=== PATIENT | male | born 1940 | race Caucasian/White ===

== ENCOUNTER → 2017-12-25 | Outpatient (CLI) | payer MEDICARE, OTHER ==
[~2017-12-25] MED LIST: ASP325T PO; ATOR40TA PO; CALC625T PO; CITA40TA19 PO; CLCX200C PO; CLOP75TA PO; CPR500T PO; CYCL10TA9 PO; Celebrex; Celexa; DPH25C PO; E400C PO; FEXO-104 PO; GLUC1000 PO; GLUC1TAB60 PO; HYDR-34 PO; INUL2TAB2 PO; IOHEXOL 350 MG/ML 100 ML (OMNIPAQUE 350) VIAL IV ONE; LOSA1TAB15 PO; LOSA1TAB9; METO-333 PO; METR500T PO; MULT-608 PO; NF-FLON16G; NS 250 ML (IVPB) BAG IV ONE; OMEG1CAP51 PO; PNT40TEC PO; POTA10CA43 PO; Protonix; TRAZ150T42; TRZ50T PO; VITA100T PO; ZINC50TA49 PO
--- NOTE | 2017-12-25 10:26 | Diagnostic Imaging Report ---
PROCEDURE: CT abdomen and pelvis with and without contrast. TECHNIQUE: Precontrast acquisitions were acquired through the abdomen and pelvis. Multiple contiguous axial images were obtained through the abdomen and pelvis after the administration of intravenous contrast. INDICATION: Lower abdominal pain. COMPARISON: Comparison is made with prior CT from 09/01/2013. FINDINGS: The lung bases are clear. No discrete liver mass is identified. The gallbladder is unremarkable. The pancreas and spleen are unremarkable. No adrenal mass is identified. Multiple low-density masses are identified within both kidneys consistent with renal cysts. This is similar to prior exam. There is a large nonobstructing calculus in lower pole left kidney, 12 mm in size, similar to prior exam. Aorta is heavily calcified but nonaneurysmal. The small and large bowel loops are of normal caliber. There is sigmoid diverticulosis but no evidence of acute diverticulitis is seen. There is no ascites. Bladder is unremarkable. Postsurgical changes in the pelvis from prostatectomy are noted. There is a fat-containing left inguinal hernia. IMPRESSION: 1. Uncomplicated diverticulosis. 2. Bilateral renal cysts. 3. Status post prostatectomy. 4. No acute feature is identified. Dictated by: Dictated on workstation # [id number]
== END ==
LOC: RAD 07:48
PROVIDERS: ATTEND Nurse Practitioner Family
DX: N28.1 Cyst of kidney, acquired (principal); Z90.79 Acquired absence of other genital organ(s)
CPT/HCPCS: 74178

== ENCOUNTER 2019-01-01 05:31 | Outpatient (CLI) | payer MEDICARE, OTHER ==
[~2019-01-01] VITALS: Ht 172.7 cm; Wt 80.7 kg
[~2019-01-01 05:31] MED LIST changes: -IOHEXOL 350 MG/ML 100 ML (OMNIPAQUE 350) VIAL IV ONE; -NS 250 ML (IVPB) BAG IV ONE
[2019-01-01] MEDS ORDERED: VIT1CAPS44 PO (11:24)
[2019-01-01] MEDS ORDERED: METO-333 PO (11:24)
[2019-01-01] MEDS ORDERED: ASPI-999 PO (11:24)
[2019-01-01] MEDS ORDERED: OMEG-109 PO (11:24)
[2019-01-01] MEDS ORDERED: LOSA100T57 PO (11:24)
[2019-01-01] MEDS ORDERED: GABA-488 PO (11:24)
[2019-01-01] MEDS ORDERED: CETI10TA17 PO (11:24)
[2019-01-01] MEDS ORDERED: CELE-63 PO (11:24)
[2019-01-01] MEDS ORDERED: [UNRECOGNIZED DRUG - CODE] PO (11:24)
[2019-01-01] MEDS ORDERED: VITA100T4 PO (11:24)
[2019-01-01] MEDS ORDERED: MAGN500C15 PO (11:24)
[2019-01-01] MEDS ORDERED: [UNRECOGNIZED DRUG - CODE] PO (11:24)
[2019-01-01] MEDS ORDERED: GLUC-153 PO (11:24)
[2019-01-01] MEDS ORDERED: ZINC50TA51 PO (11:24)
[2019-01-01] MEDS ORDERED: MULT-1056 PO (11:24)
[2019-01-01] MEDS ORDERED: POTA10TA10 PO (11:24)
[2019-01-01] MEDS ORDERED: VITA100T6 PO (11:24)
[2019-01-01] MEDS ORDERED: CITA40TA11 PO (11:24)
[2019-01-01] MEDS ORDERED: TRAZ-189 PO (11:24)
== END 2019-01-01 11:26 | disposition home or self-care (01) ==
LOC: PREOP 05:31
PROVIDERS: ATTEND Surgery
DX: Z01.818 Encounter for other preprocedural examination (principal)

== ENCOUNTER → 2019-10-07 | Outpatient (CLI) | payer MEDICARE, OTHER ==
--- NOTE | 2019-09-16 10:38 | Implantation of Loop Monitor ---
Implant of Loop Monitior IMPLANTATION OF LOOP MONITOR REPORT DATE OF PROCEDURE: 09/16/19 PREOP DIAGNOSIS: paroxysmal atrial fibrillation POSTOP DIAGNOSIS: paroxysmal atrial fibrillation PROCEDURE DETAILS: The patient is a 79 male with history of paroxysmal atrial fibrillation requiring long-term surveillance. Therefore implantable loop recorder was discussed and agreed with the patient. Informed consent was taken. All risks and complications were discussed at length. The patient was draped and prepped in the usual sterile fashion. Local anesthesia was lidocaine, which was given in the substernal area close to the 4th intercostal space. Loop monitor Med[employer]onic [id number] was implanted according to the protocol. Steri-Strips were placed at the end of the procedure. There were no complications and the patient tolerated the procedure well. The device was interrogated with a voltage of. ANESTHESIA: Local anesthesia with lidocaine. COMPLICATIONS: None CONTRAST/FLUOROSCOPY: None CONCLUSION: Successful implantation of loop recorder would no complication FINAL DIAGNOSIS: Paroxysmal atrial fibrillation Palpitation Hypertension Hyperlipidemia JOEL REA MD Sep 16, 2019 10:38
[~2019-10-07] VITALS: Ht 173 cm; Wt 82.0 kg
[~2019-10-07] MED LIST changes: +ASPI-999 PO; +CATHETER FLUSH 10 ML SYR IV PRN; +CELE-63 PO; +CETI10TA17 PO; +CITA40TA11 PO; +GABA-488 PO; +GLUC-153 PO; +LOSA100T57 PO; +MAGN500C15 PO; +MULT-1056 PO; +OMEG-109 PO; +POTA10TA10 PO; +VIT1CAPS44 PO; +VITA100T4 PO; +VITA100T6 PO; +ZINC50TA51 PO; +[UNRECOGNIZED DRUG - CODE] PO; +[UNRECOGNIZED DRUG - CODE] PO
[2019-10-07 09:07] VITALS: BP 140/79
--- NOTE | 2019-10-07 19:34 | STRESS TEST ---
DATE OF SERVICE: 10/07/2019 EXERCISE MYOVIEW STRESS TEST REPORT REFERRING PHYSICIAN: Eliana Stevens MD Baseline heart rate is 57, baseline blood pressure 139/87. Baseline EKG is sinus rhythm with no ischemic changes. In summary, the patient was injected with 10.31 mCi of technetium-99 Myoview and the resting images were obtained. Then, the patient started exercising with a baseline heart rate, blood pressure and EKG mentioned above. The patient was able to exercise for 8 minutes on standard Simón protocol. With peak exercise level, EKG was showing minimal nondiagnostic changes. Blood pressure at peak was 196/79. During recovery, heart rate and blood pressure returned to baseline. EKG returned to baseline. The resting and stress images were reviewed and compared in the short axis, horizontal long axis, and vertical long axis views. Review of the images showed diaphragmatic attenuation with no significant ischemia or infarction. SSS is 3, SDS 3, TID value 0.98. On the gated images, the left ventricle appeared to be normal size with normal contractility. Calculated ejection fraction 70%. CONCLUSION: 1. Good exercise tolerance, a total of 8 minutes on standard Simón protocol, total of 9.5 METS achieving 86% of maximum expected heart rate. 2. Appropriate heart rate and blood pressure response to exercise returned to baseline during recovery. 3. Nondiagnostic EKG changes with exercise returned to baseline during recovery. 4. Diaphragmatic attenuation with mild decreased uptake at the inferior wall, no significant ischemia was noted. 5. Normal left ventricular size with normal contractility. Calculated ejection fraction 70%. Job ID: [id number] DocumentID: [id number] Dictated Date: 10/07/2019 15:11:51 Desktop Publishing Operator Date: 10/07/2019 19:33:38 Dictated By: JOEL REA MD
== END ==
LOC: CARD 09-16 08:03
PROVIDERS: ATTEND Internal Medicine Cardiovascular Disease
DX: I10 Essential (primary) hypertension (principal); I25.10 Atherosclerotic heart disease of native coronary artery without angina pectoris; I65.23 Occlusion and stenosis of bilateral carotid arteries; I48.0 Paroxysmal atrial fibrillation; R00.2 Palpitations; E78.5 Hyperlipidemia, unspecified
CPT/HCPCS: 78452; 93017; 93306

== ENCOUNTER → 2019-11-27 | Outpatient (CLI) | payer MEDICARE, OTHER ==
[~2019-11-27] MED LIST changes: -CATHETER FLUSH 10 ML SYR IV PRN
--- NOTE | 2019-11-27 09:54 | Diagnostic Imaging Report ---
EXAMINATION: Magnetic resonance imaging of the left shoulder without contrast. DATE: November 27, 2019. COMPARISON: None. HISTORY: 79-year-old male, left shoulder pain. TECHNIQUE: Magnetic Resonance Imaging sequences were performed of the shoulder without contrast. FINDINGS: ROTATOR CUFF, LIGAMENTS, TENDONS, AND MUSCLES: There is a 10 mm wide full-thickness tear involving the anterior leading edge of the supraspinatus tendon. That tear measures 5 mm in medial to lateral dimension. The infraspinatus and teres minor tendons are intact. There is subscapularis tendinopathy. There is normal rotator cuff muscle bulk and signal. LONG HEAD OF BICEPS: The biceps labral attachment and long head of the biceps tendon is intact. The long head of the biceps tendon is normally positioned within the bicipital groove. GLENOHUMERAL JOINT: The humeral head is well positioned relative to the glenoid. There is a superior labral tear with extension posteriorly to involve the posterior superior labrum with associated multiloculated paralabral cyst which measures 10 x 8 x 10 mm in size. There is additional tearing of the posterior labrum along its entire length. There is mild glenohumeral cartilage thinning, particularly posteriorly. There is no glenohumeral joint effusion. ACROMIOCLAVICULAR JOINT: The acromioclavicular joint is normally aligned. The coracoclavicular and coracoacromial ligaments are intact. There are moderate to severe acromioclavicular degenerative changes with 6 mm undersurface osteophytes. BONE: There is no os acromiale. There is degenerative related marrow edema adjacent to the acromioclavicular joint. There is no acute fracture, bone contusion, or evidence of osteonecrosis. There are mild degenerative related changes in the posterior glenoid. BURSAE AND SOFT TISSUES: The bursae and soft tissue surrounding the shoulder are unremarkable. IMPRESSION: 1. 10 mm wide full-thickness tear involving the anterior leading edge of the supraspinatus tendon with the tear measuring 5 mm in medial to lateral dimension. No fatty muscle atrophy. Subscapularis tendinopathy. 2. Intact proximal long head of biceps tendon. 3. Moderate to severe acromioclavicular degenerative changes with 6 mm undersurface osteophytes. 4. Tear involving the superior labrum and entire length of the posterior labrum with multiloculated paralabral cyst adjacent to the superior labrum measuring 10 x 8 x 10 mm in size. 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 No glenohumeral joint effusion. 5. No acute fracture, bone contusion, or evidence of osteonecrosis. Dictated by: Dictated on workstation # [id number]
== END ==
LOC: RAD 08:28
PROVIDERS: ATTEND Family Medicine
DX: M19.012 Primary osteoarthritis, left shoulder (principal); S43.492A Other sprain of left shoulder joint, initial encounter; S43.432A Superior glenoid labrum lesion of left shoulder, initial encounter; M25.712 Osteophyte, left shoulder; M75.102 Unspecified rotator cuff tear or rupture of left shoulder, not specified as traumatic
CPT/HCPCS: 73221

== ENCOUNTER → 2020-08-16 | Outpatient (CLI) | payer MEDICARE, OTHER ==
--- NOTE | 2020-08-16 13:05 | Diagnostic Imaging Report ---
INDICATION: Vitamin D deficiency. COMPARISON: None FINDINGS: The T score for the spine is 2.4. The T score for the left hip is -0.6 and for the right hip -0.9. All of these values are within normal limits. However, the T score for each femoral neck is -1.5. This does indicate osteopenia. AP Spine L1-L4: [BMD (g/cm2): 1.54] [T-Score: 2.4] [Z-Score: 3.2] [BMD Previous: NA] [BMD % Change: NA] LT Hip Neck: [BMD (g/cm2): 0.871] [T-Score: -1.5] [Z-Score: 0.0] LT Hip Total: [BMD (g/cm2):1.013] [T-Score:-0.6] [Z-Score: 0.5] [BMD Previous: NA] [BMD % Change: NA] RT Hip Neck: [BMD (g/cm2):0.878] [T-Score:-1.5] [Z-Score:0.1] RT Hip Total: [BMD (g/cm2):0.972] [T-score:-0.9] [Z-Score:0.2] [BMD Previous:NA] [BMD % Change:NA] *Indicates significant change from prior examination based on 95% confidence level. World Health Organization criteria for BMD interpretation classify patients as Normal (T-score at or above -1.0), Osteopenic (T-score between -1.0 and -2.5) or Osteoporotic (T-score at or below -2.5). LIMITATIONS AND MODIFICATION: None. FRACTURE RISK (FRAX SCORE): The ten year probability of (%): Major Osteoporotic Fracture: [7.5] Hip Fracture: [2.5] IMPRESSION: 1. The bone mineral density of the spine and the hips is within normal limits. 2. However, there is osteopenia of the femoral necks. 3. See below National Osteoporosis Foundation guidelines on when to potentially initiate pharmacologic therapy. Based on the National Osteoporosis Foundation Guidelines, pharmacologic treatment should be initiated in any of the following, unless clinical conditions suggest otherwise: * Any patient with prior fragility fracture of the hip or vertebrae. A spine fracture indicates 5X risk for subsequent spine fracture and 2X risk for subsequent hip fracture. * Osteoporosis (T-score <-2.5). * Postmenopausal women and men age 50 and older with low bone mass/osteopenia (T-score between -1.0 and -2.5) by DXA and 10-year major osteoporotic fracture greater than 20% or a 10-year probability of hip fracture greater than 3%. These fracture risks are supplied above in the FRAX score, if applicable. * Clinician judgement and/or patient preferences may indicate treatment for people with 10-year fracture probabilities above or below these levels. Dictated by: Dictated on workstation # [id number]
== END ==
LOC: RAD 08:50
PROVIDERS: ATTEND Family Medicine
DX: M85.88 Other specified disorders of bone density and structure, other site (principal); E55.9 Vitamin D deficiency, unspecified; Z90.79 Acquired absence of other genital organ(s)
CPT/HCPCS: 77080

== ENCOUNTER 2020-09-08 08:32 | Outpatient (RCR) | payer MEDICARE, OTHER | END 2020-09-12 09:14 | disposition home or self-care (01) | PROVIDERS: ATTEND Family Medicine | DX: M54.5 Low back pain (principal) ==

== ENCOUNTER → 2020-10-06 | Outpatient (CLI) | payer MEDICARE, OTHER ==
--- NOTE | 2020-10-06 09:53 | Diagnostic Imaging Report ---
PROCEDURE: MRI lumbar spine. TECHNIQUE: Multiplanar, multisequence MRI of the lumbar spine was performed without contrast. INDICATION: Chronic low back pain. COMPARISON: 12/23/2015 FINDINGS: The last well-formed disc space will labeled L5-S1 for the purposes of this examination. There is grade 1-2 anterolisthesis at L5-S1 which appears stable since the prior study. Otherwise no spondylolisthesis is seen in the spine. There is mild right convex curvature of the lumbar spine centered at L2-L3. There is multilevel disc height loss throughout the lumbar spine, which is most severe at L2-L3 and L5-S1. Vertebral body heights are preserved. There are Modic type I edematous endplate changes at T12-L1. There are fatty Modic type II degenerative changes at L2-L3, L4-L5 and L5-S1. The conus terminates in appropriate position. The soft tissues about the lumbar spine demonstrate no acute abnormality. Multiple simple appearing cysts are partially visualized on the kidneys bilaterally. T12-L1: Diffuse disc bulge with facet arthropathy. No spinal canal stenosis. Ftnwamfl-mf-ekkbcn right and moderate left foraminal stenosis. L1-L2: Diffuse disc bulge with facet arthropathy and ligamentous infolding. Effacement of the lateral recesses. Mild spinal canal narrowing. Moderate right and severe left foraminal stenosis. L2-L3: Diffuse disc bulge with marked facet arthropathy, particularly on the left. There is complete effacement of the left lateral recess with a central disc extrusion. There is xhrq-sl-rjrcgcaf spinal canal stenosis. There is mild right foraminal narrowing and jugkwsjs-wl-pniyra left foraminal stenosis. L3-L4: Diffuse disc bulge with facet arthropathy and ligamentous infolding with effacement of the lateral recesses. Moderate spinal canal stenosis. Moderate right and evbuonsq-if-sjvrcc left foraminal stenosis. L4-L5: Diffuse disc bulge with facet arthropathy and ligamentous infolding. Marked effacement of the right lateral recess. Mild spinal canal narrowing. Severe right foraminal stenosis. Moderate left foraminal stenosis. L5-S1: Anterolisthesis with disc bulge. Facet arthropathy. No spinal canal stenosis. Severe bilateral foraminal stenosis. IMPRESSION: 1. Advanced multilevel degenerative changes throughout the lumbar spine. There is moderate spinal canal stenosis at L3-L4. 2. Multilevel effacement of the lateral recesses and foraminal stenosis. Foraminal stenosis is most severe at L4-L5 on the left and at L5-S1 bilaterally. 3. Grade 1-2 anterolisthesis at L5-S1. Dictated by: Dictated on workstation # [id number]
== END ==
LOC: RAD 08:00
PROVIDERS: ATTEND Family Medicine
DX: M47.816 Spondylosis without myelopathy or radiculopathy, lumbar region (principal); M51.26 Other intervertebral disc displacement, lumbar region; M51.27 Other intervertebral disc displacement, lumbosacral region; M48.061 Spinal stenosis, lumbar region without neurogenic claudication; M48.07 Spinal stenosis, lumbosacral region; M43.17 Spondylolisthesis, lumbosacral region
CPT/HCPCS: 72148

== ENCOUNTER 2020-10-10 09:11 | Outpatient (RCR) | payer MEDICARE, OTHER ==
[2020-10-21] MEDS ORDERED: PANT20TA2 PO (10:41)
== END 2020-11-16 10:57 | disposition home or self-care (01) ==
PROVIDERS: ATTEND Family Medicine
DX: M54.5 Low back pain (principal); I10 Essential (primary) hypertension

== ENCOUNTER 2020-10-21 10:00 | Day surgery (SDC) | payer MEDICARE ==
[~2020-10-21] VITALS: Ht 170.2 cm; Wt 82.0 kg
[2020-10-21] VITALS (7 sets, daily range): BP systolic 101–143; BP diastolic 56–81
[2020-10-21] MEDS ORDERED: LACTATED RINGERS 1,000 ML IV ONE (10:08)
[2020-10-21] MEDS ORDERED: LACTATED RINGERS 1,000 ML IV STA (10:28)
[2020-10-21] MEDS ORDERED: HURRICAINE EXT TUBE (BENZOCAINE) XX PRN (10:30)
[2020-10-21] MEDS ORDERED: LIDOCAINE JELLY 2% 6 ML SYRINGE MM PRN (10:30)
[2020-10-21] MEDS ORDERED: PANT20TA2 PO (10:41)
[2020-10-21] MEDS ORDERED: PROPOFOL INJECTION 50 ML IV ONE ×2 (10:42→11:12)
[2020-10-21] MEDS ORDERED: HURRICAINE EXT TUBE (BENZOCAINE) ONE (10:51)
[2020-10-21] MEDS ORDERED: LIDOCAINE JELLY 2% 6 ML SYRINGE ONE (10:51)
--- NOTE | 2020-10-21 11:58 | Progress Note-Pre Operative ---
Pre-Operative Progress Note H&P Reviewed The H&P was reviewed, patient examined and no changes noted. Date Seen by Provider: Oct 21, 2020 Time Seen by Provider: 10:00 Date H&P Reviewed: Oct 21, 2020 Time H&P Reviewed: 10:00 Pre-Operative Diagnosis: epigastric pain, hx polyp JESSICA CISNEROS MD Oct 21, 2020 11:58
--- NOTE | 2020-10-21 12:00 | Progress Note-Post Operative ---
Post-Operative Progess Note Surgeon (s)/Business Administrator (s) Surgeon JESSICA CISNEROS MD Business Administrator: none Pre-Operative Diagnosis epigastric pain, hx polyp Post-Operative Diagnosis reflux eosphagitis(stage 2), moderate HH(3.5cm), mild gastritis. chronic stage 2 ext and int hemorrhoids, moderate sigmoid diverticulosis. Procedure & Operative Findings Date of Procedure 10/21/20 Procedure Performed/Findings EGD with bx. colonoscopy Anesthesia Type mac Estimated Blood Loss Estimated blood loss (mL): minimal Specimens/Packing Specimens Removed ge jxn, antrum JESSICA CISNEROS MD Oct 21, 2020 12:00
--- NOTE | 2020-10-21 12:12 | Anesthesia-General Post-Op ---
General Patient Condition Mental Status/LOC: Same as Preop Cardiovascular: Satisfactory Nausea/Vomiting: Absent Respiratory: Satisfactory Pain: Controlled Complications: Absent Post Op Complications Complications None Follow Up Care/Instructions Patient Instructions None needed. Anesthesia/Patient Condition Patient Condition Patient is doing well, no complaints, stable vital signs, no apparent adverse anesthesia problems. No complications reported per nursing. CALEB HOGAN CRNA Oct 21, 2020 12:12
--- NOTE | 2020-10-21 17:20 | OPERATIVE REPORT ---
DATE OF SERVICE: 10/21/2020 ATTENDING PRIMARY CARE PHYSICIAN: Eliana Stevens MD PREOPERATIVE DIAGNOSES: Reflux, history of peptic ulcer disease, history of colon polyps. POSTOPERATIVE DIAGNOSES: Reflux esophagitis stage II, moderate size hiatal hernia approximately 3.5 cm in size. Mild to moderate gastritis, moderate sigmoid diverticulosis, chronic stage II external and internal hemorrhoids. PROCEDURE PERFORMED: EGD with biopsy, colonoscopy. SURGEON: Dr. Cisneros. ANESTHESIA: Monitored anesthesia care. ESTIMATED BLOOD LOSS: Minimal. FINDINGS: Reflux esophagitis stage II, moderate size hiatal hernia approximately 3.5 cm in size. Mild to moderate gastritis, moderate sigmoid diverticulosis, chronic stage II external and internal hemorrhoids. DISPOSITION: The patient tolerated the procedure well. INDICATIONS: The patient is a 80-year-old male referred over to us for epigastric pain as well as crampy lower abdominal pain, which he has had for years; however, over the past 6 months, this has become more significant. He also does report having bloating as well as diarrhea. His last colonoscopy was approximately 10 years ago and he does remember having polyps identified, which were benign. He reports the issues with epigastric pain is usually after specific types of foods. DESCRIPTION OF PROCEDURE: The patient was brought to the endoscopy suite, laid in the left lateral decubitus position. After adequate IV pain and sedative medications and conscious monitored anesthesia care, the mouthpiece was applied. The endoscope was placed in the mouth and visualized intact to the hypopharyngeal region. Vocal cords, epiglottis and vallecula identified and appeared to be normal. The endoscope was then gently intubated and the esophageal opening and the esophagus insufflated. The endoscope was then advanced through the first, second and third portions of the esophagus to the level of the GE junction. Reflux esophagitis stage II identified. The GE junction was also intrathoracic consistent with a hiatal hernia. The endoscope was then advanced in the stomach. The endoscope was retroflexed, visualizing a moderate sized hiatal hernia approximately 3.5 cm in size. There was a mild to moderate gastritis. No formal ulcerations, polyps or neoplasms. A biopsy was taken from the antrum to rule out H. pylori. Visualization good hemostasis. The endoscope was then advanced through the pylorus into the first and second portions of the duodenum, which appeared normal. The endoscope was then slowly withdrawn while taking a second look and suctioning of residual air with no additional findings. We then proceeded with a colonoscopy portion of the procedure where a digital rectal examination was performed, which revealed chronic stage II external and internal hemorrhoids, not actively edematous nor inflamed and no bleeding. Normal sphincter tone was held and there were no palpable masses. Prostate gland was palpable and appeared normal. The endoscope was then intubated into the anus and rectum gently insufflated. The endoscope was then advanced through the valve of Lowe of the rectum with no polyps or neoplasms identified. Through the sigmoid colon, a moderate sigmoid diverticulosis was identified. We then proceeded with the remainder of the descending, transverse and ascending colon to the cecum. These segments were normal. There were no polyps or neoplasms identified throughout the colon or rectum. Endoscope was then slowly withdrawn while taking a second look of suction of residual air with no additional findings. The patient tolerated the procedure well. We will recommend the necessary lifestyle and diet accommodation including swallowing more frequent meals, avoiding eating at night as well as head elevation while lying supine. He also needs to avoid caffeinated beverages, spicy, greasy and acidic foods and we will also have him continue with his regimen of Protonix. We will also recommend a high fiber diet with fiber supplementation, which equals or exceeds 30 grams of fiber daily as well as significant amounts of water to promote soft stools on a daily basis. There were no polyps identified and if he is asymptomatic, he does not need another colonoscopy for another 10 years. Job ID: [id number] DocumentID: [id number] Dictated Date: 10/21/2020 11:40:33 Hospitality Workers Date: 10/21/2020 17:19:04 Dictated By: JESSICA CISNEROS MD
== END 2020-10-21 12:37 | disposition home or self-care (01) ==
LOC: ENDO 10:00
PROVIDERS: ATTEND Surgery
DX: K21.00 Gastro-esophageal reflux disease with esophagitis, without bleeding (principal); K29.50 Unspecified chronic gastritis without bleeding; K44.9 Diaphragmatic hernia without obstruction or gangrene; K57.30 Diverticulosis of large intestine without perforation or abscess without bleeding; K64.1 Second degree hemorrhoids; K31.7 Polyp of stomach and duodenum; I10 Essential (primary) hypertension; J44.9 Chronic obstructive pulmonary disease, unspecified; E78.00 Pure hypercholesterolemia, unspecified; G47.00 Insomnia, unspecified; Z79.82 Long term (current) use of aspirin; Z79.899 Other long term (current) drug therapy; Z87.11 Personal history of peptic ulcer disease; Z86.010 Personal history of colon polyps; Z85.46 Personal history of malignant neoplasm of prostate; Z95.5 Presence of coronary angioplasty implant and graft
CPT/HCPCS: 88305

== ENCOUNTER → 2020-12-05 | Outpatient (CLI) | payer MEDICARE ==
[~2020-12-05] MED LIST changes: +PANT20TA2 PO
== END ==
LOC: LABNPT 07:12
PROVIDERS: ATTEND Orthopaedic Surgery
DX: Z01.812 Encounter for preprocedural laboratory examination (principal); Z20.822 Contact with and (suspected) exposure to COVID-19
CPT/HCPCS: 87635

== ENCOUNTER → 2022-04-30 | Outpatient (CLI) | payer MEDICARE ==
[~2022-04-30] MED LIST changes: +CALC-242 PO; -CITA40TA11 PO; +CITA40TA13 PO; -[UNRECOGNIZED DRUG - CODE] PO
--- NOTE | 2022-04-30 18:54 | Diagnostic Imaging Report ---
INDICATION: Status post lumbar fusion. Persistent back pain. COMPARISON: 11/30/2015 FINDINGS: Flexion and extension views of the lumbar spine were obtained in the lateral projection. Patient is status post previous posterior fusion at the L5-S1 level. Hardware appears appropriate on these lateral views. Intervertebral disc spacer material is also present at L5-S1 and appears appropriately positioned. There is persistent, but stable grade 2 anterolisthesis at L5-S1. Note is also made of slight grade 1 retrolisthesis at L2-L3 and anterolisthesis at L3-L4. There is no abnormal translation when comparing flexion and extension views. Extensive calcified aortic atherosclerosis is also noted. IMPRESSION: 1. Multilevel carmita and retrolisthesis of the lumbar spine with postsurgical changes of previous posterior fusion at L5-S1. 2. No abnormal translation when comparing flexion and extension views. Dictated by: Dictated on workstation # [id number]
== END ==
LOC: RAD 11:28
PROVIDERS: ATTEND Pain Medicine Interventional Pain Medicine
DX: M43.16 Spondylolisthesis, lumbar region (principal); M54.17 Radiculopathy, lumbosacral region; M96.1 Postlaminectomy syndrome, not elsewhere classified; M53.3 Sacrococcygeal disorders, not elsewhere classified; Z98.1 Arthrodesis status
CPT/HCPCS: 72100

== ENCOUNTER → 2023-01-02 | Outpatient (CLI) | payer MEDICARE, OTHER | LOC: CARD 08:19 | PROVIDERS: ATTEND Internal Medicine Cardiovascular Disease | DX: I35.1 Nonrheumatic aortic (valve) insufficiency (principal); I10 Essential (primary) hypertension | CPT/HCPCS: 93306 ==

== ENCOUNTER → 2023-01-23 | Outpatient (CLI) | payer MEDICARE, OTHER ==
[~2023-01-23] MED LIST changes: +CATHETER FLUSH 10 ML SYR IVP PRN
[2023-01-23 09:12] VITALS: BP 143/72
[2023-01-23 09:20] VITALS: BP 211/89
--- NOTE | 2023-01-23 13:19 | Cardiology Stress Test Report ---
Stress Test Report Date of Procedure/Referring: Date of Procedure: January 23, 2023 PCP Sarkis Stevens MD Admitting Physician Admitting Physician: Attending Physician: Carina Smith MD Indications: HTN Baseline Heart Rate: 58 Baseline Blood Pressure: Blood Pressure Systolic: 211 Blood Pressure Diastolic: 89 Vital Signs Date Time Temp Pulse Resp B/P (MAP) Pulse Ox O2 Delivery O2 Flow Rate FiO2 01/23/23 09:12 73 18 143/72 (95) Room Air 01/23/23 09:20 99 Baseline Vital Signs Vital Signs Date Time Temp Pulse Resp B/P (MAP) Pulse Ox O2 Delivery O2 Flow Rate FiO2 01/23/23 09:12 73 18 143/72 (95) Room Air 01/23/23 09:20 99 Baseline EKG: Baseline EKG: NSR Summary: After explaining the procedure and details to the patient, he signed the consent and was brought to the stress nuclear laboratory. Patient exercised on standard Simón protocol, EKG, heart rate and blood pressure were monitored continuously, resting and stress doses of radio tracer were injected, imaging was acquired and reviewed in the short axis, horizontal long axis and vertical long axis views Patient was able to exercise for a total of 8 minutes on Simón protocol, METs 9.7 Maximum heart rate 126 Maximum blood pressure 213/89 Stress EKG, Minimal nondiagnostic changes Recovery EKG, Return to baseline TID: 0.87 SSS: 4 SDS: 2 EF: 69 Conclusion: Good exercise tolerance for a total of 8 minutes on standard Simón protocol, 9.7 METS achieving 90% of maximal expected heart rate Appropriate heart rate response to exercise with severe hypertensive response to exercise with peak blood pressure 213/89 persisted in recovery Nondiagnostic EKG changes with exercise return to baseline during recovery Mild reversible ischemia involving the mid to apical anteroseptum, probably due to to apical thinning/extracardiac attenuation Normal left ventricular size, ejection fraction 69% Copy Copies To 1: SARKIS STEVENS MD, BASHAR J MD January 23, 2023 13:19
== END ==
LOC: CARD 07:29
PROVIDERS: ATTEND Internal Medicine Cardiovascular Disease
DX: I10 Essential (primary) hypertension (principal)
CPT/HCPCS: 78452; 93017; A9502